=== PATIENT | male | born 1995 | race Caucasian/White ===

== ENCOUNTER 2016-08-18 10:14 | Day surgery (SDC) | payer OTHER ==
[~2016-08-18] VITALS: Ht 188 cm; Wt 52.0 kg
[~2016-08-18 10:14] MED LIST: ACET325T45 GTB; ALBU2.5V36 NEB; BISA10SU75 PR; DOXA4TAB3 GTB; FAMO20TA18 GTB; HEP30MU30 IJ; HYDR-3498 GTB; LACT1CAP57 GTB; LACT20SO2 PO; METO5VIA3 GTB; PROP10TA6 GTB; RTATR NEB; TRAM-40 GTB
[2016-08-18 11:02] VITALS: Ht 188 cm; Wt 52.0 kg
--- NOTE | 2016-08-18 11:35 | GILP ---
DATE OF PROCEDURE: NAME OF PROCEDURE: Gastrostomy tube replacement. SURGEON: Heavenly Murdock MD PREOPERATIVE DIAGNOSES 1. Dysphagia. 2. Multiple screening gastrostomy tube. POSTOPERATIVE DIAGNOSES: Successful replacement of the gastrostomy tube. INDICATION FOR THE PROCEDURE: Mr. Gautam Antonio is a 21-year-old male patient who had malfunct ioning gastrostomy tube. Patient was scheduled for replacement. DESCRIPTION OF PROCEDURE: The malfunctioning tube was pulled out of the patient's stomach. The gas trostomy site was clean. A replacement tube was carefully inserted through the stoma into the stoma ch. After making sure the tip of the tube is inside the stomach, the balloon was inflated. After i nflation of the balloon, the procedure and the tube inside the stomach was reconfirmed. He tolerated the procedure very well and there was no complication from the procedure. At the end o f the procedure, his vital signs were stable and he was transferred back home in good congestion. IMPRESSION: Successful replacement of the gastrostomy tube. PLAN: Resume gastrostomy tube feeding. Dictated By: HEAVENLY AZEVEDO/BORA Conf#: [id number] DID#: [id number]
== END 2016-08-18 17:20 | disposition home or self-care (01) ==
LOC: GIL 10:14
PROVIDERS: ATTEND Internal Medicine Gastroenterology
DX: K94.23 Gastrostomy malfunction (principal); Y84.8 Other medical procedures as the cause of abnormal reaction of the patient, or of later complication, without mention of misadventure at the time of the procedure
CPT/HCPCS: 43760

== ENCOUNTER 2017-02-09 09:59 | Day surgery (SDC) | payer OTHER ==
[~2017-02-09] VITALS: Ht 188 cm; Wt 60.0 kg
[~2017-02-09 09:59] MED LIST changes: -ACET325T45 GTB; -ALBU2.5V36 NEB; -DOXA4TAB3 GTB; -HEP30MU30 IJ; -HYDR-3498 GTB; -LACT1CAP57 GTB; -METO5VIA3 GTB; -RTATR NEB; -TRAM-40 GTB
[2017-02-09 10:15] VITALS: Ht 188 cm; Wt 60.0 kg
--- NOTE | 2017-02-09 10:33 | OPPN ---
Date/Time of Note Date/Time of Note DATE: 02/09/17 TIME: 10:32 Operative Report Preoperative Diagnosis Malfunctioning gastrostomy tube Postoperative Diagnosis Successful replacement of the gastrostomy tube Operation/Procedure Performed Gastrostomy tube replacement Surgeon see signature line oncology physician assistant None Anesthesia: other Estimated blood loss: none Transfusion Required none Specimen None Grafts/Implants none Complications none HEAVENLY ALLEN MD Feb 09, 2017 10:33
--- NOTE | 2017-02-09 10:33 | OPPN ---
Date/Time of Note Date/Time of Note DATE: 02/09/17 TIME: 10:32 Operative Report Preoperative Diagnosis Malfunctioning gastrostomy tube Postoperative Diagnosis Successful replacement of the gastrostomy tube Operation/Procedure Performed Gastrostomy tube replacement Surgeon see signature line certified nursing assistant None Anesthesia: other Estimated blood loss: none Transfusion Required none Specimen None Grafts/Implants none Complications none HEAVENLY ALLEN MD Feb 09, 2017 10:33
--- NOTE | 2017-02-09 10:33 | OPPN ---
Date/Time of Note Date/Time of Note DATE: 02/09/17 TIME: 10:32 Operative Report Preoperative Diagnosis Malfunctioning gastrostomy tube Postoperative Diagnosis Successful replacement of the gastrostomy tube Operation/Procedure Performed Gastrostomy tube replacement Surgeon see signature line hair or beauty salon assistant None Anesthesia: other Estimated blood loss: none Transfusion Required none Specimen None Grafts/Implants none Complications none HEAVENLY ALLEN MD Feb 09, 2017 10:33
[2017-02-09 10:58] VITALS: BP 120/84; PULSE 77; RESP 24
--- NOTE | 2017-02-09 11:31 | GILP ---
DATE OF PROCEDURE: NAME OF PROCEDURES: Gastrostomy tube replacement. SURGEON: Heavenly Murdock MD POSTOPERATIVE DIAGNOSIS: Malfunctioning gastrostomy tube. POSTOPERATIVE DIAGNOSIS: Successful replacement of the gastrostomy tube. INDICATION FOR THE PROCEDURE: Mr. Gautam Antonio is a 21-year-old male patient who had a gastro stomy tube for feeding. It was malfunctioning. The procedure and possible complications are well explained to the patient's family and consent was obtained. DESCRIPTION OF PROCEDURE: The malfunctioning tube was pulled out of the patient's stomach. The gas trostomy site was clean. A replacement tube was carefully inserted into the stomach through the gas trostomy. After making sure the tip of the tube is in perfect place, the balloon was inflated. Aft er inflation of the balloon, again position of the tube into the stomach was reconfirmed. He tolerated the procedure very well and there was no complication from the procedure. At the end o f the procedure, his vital signs were stable and he was discharged home to the care of his family. IMPRESSION: Successful replacement of the gastrostomy tube. PLAN: Will resume gastrostomy tube feeding. Dictated By: HEAVENLY AZEVEDO/OBRA Conf#: [id number] DID#: [id number]
--- NOTE | 2017-02-09 11:31 | GILP ---
DATE OF PROCEDURE: NAME OF PROCEDURES: Gastrostomy tube replacement. SURGEON: Heavenly Murodck MD POSTOPERATIVE DIAGNOSIS: Malfunctioning gastrostomy tube. POSTOPERATIVE DIAGNOSIS: Successful replacement of the gastrostomy tube. INDICATION FOR THE PROCEDURE: Mr. Gautam Antonio is a 21-year-old male patient who had a gastro stomy tube for feeding. It was malfunctioning. The procedure and possible complications are well explained to the patient's family and consent was obtained. DESCRIPTION OF PROCEDURE: The malfunctioning tube was pulled out of the patient's stomach. The gas trostomy site was clean. A replacement tube was carefully inserted into the stomach through the gas trostomy. After making sure the tip of the tube is in perfect place, the balloon was inflated. Aft er inflation of the balloon, again position of the tube into the stomach was reconfirmed. He tolerated the procedure very well and there was no complication from the procedure. At the end o f the procedure, his vital signs were stable and he was discharged home to the care of his family. IMPRESSION: Successful replacement of the gastrostomy tube. PLAN: Will resume gastrostomy tube feeding. Dictated By: HEAVENLY AZEVEDO/BORA Conf#: [id number] DID#: [id number]
== END 2017-02-09 11:31 | disposition home or self-care (01) ==
LOC: GIL 09:59
PROVIDERS: ATTEND Internal Medicine Gastroenterology
DX: K94.23 Gastrostomy malfunction (principal)
CPT/HCPCS: 43760; Z7610